=== PATIENT | female | born 1955 | race Caucasian/White ===

== ENCOUNTER 2020-03-06 12:02 | Emergency (ER) | payer MEDICARE ==
--- NOTE | 2020-03-06 12:45 | XRAY Report ---
PROCEDURE: Knee 4 View LT INDICATIONS: Trauma TECHNIQUE: 4 views of the left knee(s) were acquired. COMPARISON: None. FINDINGS: Bones: No fractures or dislocations. No suspicious bony lesions. Scattered subchondral sclerosis a nd spurring. Moderate narrowing of the medial joint space. Soft tissues: No joint effusion. No suspicious soft tissue calcifications. IMPRESSION: Moderate left knee joint degeneration. No fracture identified. If the patient's pain or other symptoms persist, consider further evaluation with MRI. Reviewed by: Timothy Gaston MD on 03/06/2020 12:43 PM PST Approved by: Timothy Gaston MD on 03/06/2020 12:43 PM PST Station ID: [id number]
--- NOTE | 2020-03-06 13:14 | ED Physician Documentation ---
History of Present Illness - Stated complaint Stated Complaint: L LEG PX - Chief complaint Chief Complaint: Trauma Ext - History obtained from History obtained from: Patient - History of Present Illness Timing: How many days ago (5) - Additonal information Additional information: 64-year-old female presents to the emergency department for evaluation of left knee pain. She reports that 5 days ago she was walking and her right foot got caught and she ended up twisting the left knee by externally rotating it. She did not fall and she has been able to walk and bear weight but she does have pain in the posterior knee when walking. There is no swelling deformity or ecchymosis. She has remote history of an ACL tear/injury over 40 years ago. She is visiting [facility] from [facility] and will be here through April Review of Systems Constitutional: reports: Reviewed and negative Eyes: reports: Reviewed and negative Ears: reports: Reviewed and negative Nose: reports: Reviewed and negative Cardiac: reports: Reviewed and negative Respiratory: reports: Reviewed and negative GI: reports: Reviewed and negative : reports: Reviewed and negative Musculoskeletal: reports: Joint pain (left knee), Pain with weight bearing. denies: Joint swelling PD PAST MEDICAL HISTORY - Allergies Allergies/Adverse Reactions: Allergies Allergy/AdvReac Type Severity Reaction Status Date / Time No Known Drug Allergies Allergy Verified 03/06/20 12:10 - Social History Does the pt smoke?: No Smoking Status: Never smoker PD ED PE EXPANDED - Extremities Extremities: Left knee (No swelling or ecchymosis. No laxity. Normal flexion extension of knee against resistance. Patient able to bear full weight, mild limp noted. Most of the pain is in the posterior knee with deep palpation. 2+ distal DP pulse.) Results - Vitals Vitals: Vital Signs - 24 hr 03/06/20 12:08 Temperature 36.0 C L Heart Rate 64 Respiratory 16 Rate Blood Pressure 126/78 O2 Saturation 98 Oxygen O2 Source Room air - Rads (name of study) left knee Radiology: Final report received (Moderate left knee joint degeneration. No fracture identified.) PD MEDICAL DECISION MAKING - ED course Complexity details: reviewed results, re-evaluated patient, considered differential, d/w patient ED course: 64-year-old male presents to the emergency department for evaluation of acute left knee pain after twisting injury 5 days ago. X-ray shows moderate degenerative joint disease but no acute fracture. On exam she has no swelling or effusion. No ecchymosis. Nearly normal gait. It is the posterior knee that is painful with deep palpation only. At this time I suspect an internal sprain. Patient was given an Jaden wrap and felt marked improvement in her ability to bear weight. I have advised rice precautions. Will follow up with primary care provider or the ER if not markedly better in 7 to 10 days. Departure - Departure Disposition: 01 Home, Self Care Clinical Impression: Left knee sprain Qualifiers: Encounter type: initial encounter Involved ligament of knee: unspecified ligament Qualified Code(s): S83.92XA - Sprain of unspecified site of left knee, initial encounter Condition: Stable Record reviewed to determine appropriate education?: Yes Instructions: ED Sprain Knee Comments: Hazel as we discussed the x-ray of your knee shows arthritis developing but there is no fracture. It is most likely you have sprained your posterior knee. I would like you to wear the Jaden wrap when up and out of bed during the day. I do recommend that you ice the knee twice a day for the next few days. Activities that do not cause any pain in the knee are okay. But I would avoid extensive walking or hiking until markedly better. If your pain is not better in 10 to 14 days you may benefit from a physical therapy follow-up or referral. If you have any redness, fevers severe pain please return to the ER for second look. You may take Tylenol or ibuprofen [id number] for discomfort.
[2020-03-06 13:29] VITALS: BP 120/70
== END 2020-03-06 13:28 | disposition home or self-care (01) ==
LOC: ED 12:02
DX: S83.92XA Sprain of unspecified site of left knee, initial encounter (principal); X50.1XXA Overexertion from prolonged static or awkward postures, initial encounter; Y93.01 Activity, walking, marching and hiking; M17.12 Unilateral primary osteoarthritis, left knee
CPT/HCPCS: 99281; 99283